=== PATIENT | male | born 1955 | race Caucasian/White ===

== ENCOUNTER → 2016-05-17 | Outpatient (CLI) | payer SELFPAY ==
--- NOTE | 2016-05-17 13:39 | DI ---
LEFT FOOT, 05/17/2016 11:41 AM: Clinical History: Left foot pain. Previous Exam: None at this facility. 3 views are submitted. There is no acute soft tissue, osseous, or joint abnormality. There is a promi nent os naviculare. Arthritic changes are present in the calcaneocuboidal joint. The patient is statu s post ORIF of fractures of the distal fibula and the medial malleolus. Reading: Except for degenerative changes in the calcaneocuboidal joint, the study is normal.
== END ==
LOC: MOB LAB 11:44
DX: M79.672 Pain in left foot (principal); M19.072 Primary osteoarthritis, left ankle and foot
CPT/HCPCS: 36415; 73630; 84550

== ENCOUNTER → 2016-05-30 | Outpatient (CLI) | payer OTHER ==
--- NOTE | 2016-05-30 11:02 | DI ---
CERVICAL SPINE SERIES, 05/30/2016 10:12 AM: Clinical History: Status post cervical fusion. Followup exam. Previous Exam: 02/02/2016. Upright AP and lateral and upright lateral flexion and extension views are submitted. The patient is status post anterior fusions at C5-6 and C6-7. There is still a lucency along the inferior aspect of the bone graft at C6-7. There is disc space narrowing at C3-4 and C4-5 with anterior and posterior bijan ny proliferative change, and similar narrowing at C7-T1. No instability is noted with flexion and ext ension maneuvers. Degenerative arthritic changes are present in the zygapophyseal joints bilaterally at C7-T1. C1 articulates normally with C2 and the occiput. Prevertebral soft tissue planes are normal . Both lung apices are normal. Readin. Status post anterior fusions at C5-6 and C6-7. There is still a lucency along the inferior margin of the bone graft cage at C6-7. There is disc space narrowing at C3-4, C4-5, and C7-T1. 2. No instability is noted with flexion and extension maneuvers.
== END ==
LOC: RAD 10:09
PROVIDERS: ATTEND Physician Assistant
DX: Z47.89 Encounter for other orthopedic aftercare (principal); Z98.1 Arthrodesis status
CPT/HCPCS: 72050

== ENCOUNTER → 2016-07-05 | Outpatient (CLI) | payer OTHER ==
--- NOTE | 2016-07-06 08:36 | DI ---
CT CERVICAL SPINE SCAN WITH INTRATHECAL CONTRAST, 07/05/2016 1:08 PM : Clinical History: Cervical spondylosis. Previous Exam: None at this facility. Scans are performed from C3 to the base of the skull with intrathecal contrast. Sagittal and coronal reformatted images are generated. Curved coronal reformatted images and axial reformatted images angl ed through the disc spaces are also performed. There is superior endplate invagination involving C3 and T3, and there are anterior fusions at C5-6 a nd C6-7. Disc space narrowing is present at the remaining cervical disc levels. The anterior fusions at C5-6 and C6-7 are solid. There is 1 mm posterior subluxation of C4 on C5. C1 articulates normally with C2 and the occiput. Prevertebral soft tissue planes are normal. C2-3 and C3-4 disc spaces are normal. C4-5 has a central bulging but not herniated disc and there is no canal or significant neural foraminal stenosis. C5-6 and C6-7 show no canal or neural foraminal st enosis. The C7-T1 through T3-4 disc spaces are normal. The right cerebellar tonsil descends to the le alfredito of the foramen magnum in the left cerebellar tonsil is above the foramen magnum. The cervical cor d is normal. READIN. Status post anterior fusions at C5-6 and C6-7 in both fusions are solid. There is no canal or stacey ral foraminal stenosis at either level. 2. There is a bulging but not herniated disc at C4-5 with posterior subluxation of C4 on C5 by 1 mm. There is no canal or neural foraminal stenosis. 3. The C2-3, C3-4, and C7-T1 through T3-4 disc spaces are normal.
--- NOTE | 2016-07-06 09:07 | DI ---
COMPLETE MYELOGRAM, 07/05/2016 1:27 PM: Clinical History: Cervical, thoracic, and lumbar spondylosis. Previous Exam: None at this facility. A "time out" session verified the patient's name and date of . Informed signed consent was then obtained for this procedure. The patient and his informed of benefits and risks, to include but not be limited to: allergies to medications (skin preparation agents, local anesthetic, and contrast agent), infection, and "spinal" headaches. The lower back was prepped with ChloraPrep with Tint. 1% l idocaine without epinephrine was used for intradermal and subcutaneous local anesthesia. With fluoros copy, a 22 gauge spinal needle introduced into the spinal canal from the left L3 paraspinal approach. with a single pass that revealed droplets of clear colorless CSF. 10 ml of Omipaque 300 was injected into the spinal canal with fluoroscopic monitoring. Spot films of the spine were obtained and the pa tient was transferred to the CT scan suite for the CT myelogram. Following the CT scan, the patient was observed in the department for approximately 1 hour. 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 Both parties were also instructed to have him push fluids for the remainder of the day and to have him sleep on an extra pillow with the head up if possible. Both parties advised to watch for signs of an infection (including but not limited to: redness, swelling, fever) or an unusually severe headache. Both parties instructed to either contact the x-ray departme nt directly or to report to the Emergency Room immediately if problems arose. CERVICAL MYELOGRAM: There are anterior fusions at C5-6 and C6-7. The C2-3 and C3-4 disc spaces are normal. There is an an terior extradural defect at C4-5 without nerve root sleeve amputation consistent with a bulging disc. There is no canal stenosis at this level but there is posterior subluxation of C4 on C5 by 1 mm. The re is no canal stenosis at C5-6 or C6-7. THORACIC MYELOGRAM: After completion of spot films of the lumbar spine, contrast was advanced to the cervical spine becau se there was considerable dilution of the contrast even on the lumbar spine spot films. After complet ion of the cervical spine study, there was insufficient concentration of contrast to facilitate adequ ate evaluation of the thoracic spine and cord. Evaluation is deferred to the CT thoracic myelogram. LUMBAR MYELOGRAM: There are 6 nonrib-bearing lumbar vertebral bodies. Severe disc space narrowing is present at L4-5. M inimal anterior extradural defects are seen at L1-2 through L3-4, and L3-4 has a bulging but not lola iated disc. There is insufficient contrast to further evaluate L1-2 and L2-3. L4-5 shows no nerve ajit t sleeve amputation but there is a prominent anterior extradural defect with mild narrowing of the ca nal consistent with a bulging but not herniated disc. L5-L6 has a mild anterior extradural defect ind icating a mild bulging but not herniated disc. The L6-S1 disc space is normal. Readin. Status post anterior fusions at C5-6 and C6-7 without evidence of canal stenosis or nerve root sl eeve amputations. There is a bulging disc at C4-5 with posterior subluxation of C4 on C5 by 1 mm. The C2-3 and C3-4 disc spaces are normal. 2. The thoracic spine could not be adequately evaluated and assessment is deferred to the CT thoraci c myelogram study. 3. L3-4 through L5-L6 have bulging discs without canal stenosis. The L6-S1 disc space is normal. The L1-2 and L2-3 disc spaces could not be adequately evaluated and interpretation is deferred to the CT lumbar myelogram study.
--- NOTE | 2016-07-06 09:10 | DI ---
CT THORACIC SPINE SCAN WITH INTRATHECAL CONTRAST, 07/05/2016 1:08 PM : Clinical History: Cervical spondylosis with fusion; old fracture of T12. Previous Exam: None at this facility. Scans are obtained from C6 to the mid body of L2 with intrathecal contrast. Sagittal and coronal refo rmatted images are generated.Curved coronal reformatted images and axial reformatted images angled th rough the disc spaces are also performed. 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 There is a vertical midline fracture through the body of T12. The disc spaces are normal. There are no acute fractures. Posterior alignment and posterior e lements are normal. Pedicles are normal. Paravertebral soft tissue planes are normal. The thoracic cord is normal and there is no intradural extramedullary lesion. The disc spaces from C7 -T1 through T9-10 are normal. T10-11 has a circumferentially bulging disc that is more prominent on t he left anterolateral aspect of the right side. There is no canal or neural foraminal stenosis. T11-1 2 also has a circumferentially bulging disc that is more prominent on the left anterolateral aspect w ithout canal or neural foraminal stenosis. The T12-L1 and L1-2 disc spaces are normal. READIN. There is an old fracture involving the body of T12. The vertical fracture lucency extends to the mid sagittal plane of the T12 vertebral body indicating nonunion. The thoracic cord is normal and the re is no intradural extramedullary lesion. 2. T10-11 and T11-12 have bulging disc that are most prominent on the left anterolateral aspect but there is no canal or neural foraminal stenosis. 3. The disc spaces from C7-T1 through T9-10 and at T12-L1 and L1-2 are normal.
--- NOTE | 2016-07-06 10:47 | DI ---
CT LUMBAR SPINE SCAN WITH INTRATHECAL CONTRAST, 07/05/2016 1:08 PM : Clinical History: Cervical spondylosis. Previous fracture of T12. Previous Exam: 02/13/2016. Scans are obtained from T11 to S4. without IV contrast. Sagittal and coronal reformatted images are g enerated. Curved coronal reformatted images and axial reformatted images angled through the disc spac es are also performed. This patient has 6 nonrib-bearing lumbar vertebral bodies and the lowest level is identified as L6. The lumbar vertebral bodies are of normal height and size. There is an old compression fracture of T1 2 and fracture lucencies are still visible to the vertebral body in the mid sagittal and coronal plan es. There is disc space narrowing from T11-12 through L5-S1 and at L6-S1. There are no acute fracture s. Posterior alignment and posterior elements are normal. Pedicles are normal. The sacrum and SI join ts are normal. The T10-11 through L2-3 disc spaces all show minimal bulging but not herniated discs without canal or neural foraminal stenosis. L3-4 has a more prominent circumferentially bulging but not herniated dis c without canal or neural foraminal stenosis. L4-5 also has a bulging disc but in addition, there is bony proliferative change posteriorly as well as hypertrophic changes of the apophyseal joints and li gamentum flavum. There is no canal stenosis or significant neural foraminal stenosis. The L5-L6 disc space has a bulging but not herniated disc without canal or neural foraminal stenosis. The L6-S1 disc space is normal. READIN. There are bulging but not herniated discs without canal or neural foraminal stenosis from T10-11 through L5-L6. There are old fractures involving the body of T12. 2. That L6-S1 disc space is normal.
== END ==
LOC: RAD 12:37
PROVIDERS: ATTEND Neurological Surgery
DX: M54.2 Cervicalgia (principal); M47.812 Spondylosis without myelopathy or radiculopathy, cervical region; M47.814 Spondylosis without myelopathy or radiculopathy, thoracic region; M47.816 Spondylosis without myelopathy or radiculopathy, lumbar region; Z98.1 Arthrodesis status; W22.8XXA Striking against or struck by other objects, initial encounter; Y93.89 Activity, other specified
CPT/HCPCS: 72126; 72129; 72132; 72240; 72255; 72265

== ENCOUNTER 2016-08-15 08:39 | Day surgery (SDC) | payer OTHER ==
[2016-08-15] MEDS ORDERED: DEXAMETHASONE SOD PHOSPHATE 4 MG/1 ML VIAL IM ONE (09:00)
[2016-08-15] MEDS ORDERED: Iopamidol Inj 61% 50 ML VIAL INTRATHEC ONE (09:00)
[2016-08-15] MEDS ORDERED: TRIAMCINOLONE ACETONIDE 40 MG/1 ML IAC ONE (09:00)
[2016-08-15] MEDS ORDERED: BUPivacaine Inj 0.25% PF - 10ml vial EPIDURAL ONE (09:00)
--- NOTE | 2016-08-15 09:18 | GEN.OPNOTE ---
Interlaminar DAVI Procedure: Interlaminar Epidural Steriod Injection Procedure Code - Neurosurgery: 31442 : Cervical Epidural Injection (Single) Level: T11-12 -: Consent: Rationale for procedure, nature of procedure, possible risks and benefits were discussed with the patient. Risks including allergic reaction to medications, known effects of steroid medications including transient elevation in blood sugar with aggravation of pre-existing diabetes and remote risk of aseptic necrosis of the hip. Pain at the injection site, inadvertent dural puncture with resultant in CSF leak and headache possibly requiring further treatment. Infection or bleeding with potential risk of neurologic injury with weakness, paralysis or were all reviewed with the patient who wished to proceed. Anesthesia, sedation: No intravenous access or sedation was used. Physiologic monitoring of pulse and oxygen saturation was utilized. Procedure: The patient was placed prone on the operating room table, prepped with Chloroprep and sterilely draped. The skin was anesthetized with 1% Buffered Xylocaine. Under fluoroscopic control a 22-gauge Touhy needle was advanced into the epidural space at the T11-12 level. Using loss-of- resistance technique the epidural space was identified. Omnipaque was injected under real-time fluoroscopy demonstrating an epidurogram. Following this 5 ml of a mixture of kenalog (40mg/ml) dexamethasone (10mg/ml) and 1% lidocaine was injected epidurally. AP and lateral images of the final needle placement were obtained. The needle was removed and the patient returned to the post procedure recovery room where they were monitored for any side effects. Pain assessment: Preprocedure pain []/10, post procedure pain []/10. Discharge instructions: Patient was given a pain log to be filled out and returned. A delayed response to the steroids of 2-5 days was discussed.
--- NOTE | 2016-08-15 09:20 | GEN.OPNOTE ---
Facet Injection Procedure: Facet Injection with Local Anesthetic and Steriod Procedure Code - Neurosurgery: 06484 : C/T Spine Facet/Med, 1st Level: C7T1 Preoperative Diagnosis: Cervical Spondylosis Postoperative Diagnosis: same -: Consent: Rationale for procedure, nature of procedure, possible risks and benefits were discussed with the patient. Risks including allergic reaction to medications, known effects of steroid medications including transient elevations in blood sugar with aggravation of pre-existing diabetes and remote risk of aseptic necrosis of the hip. Infection or bleeding with potential risk of neurologic injury with weakness, paralysis or were all reviewed with the patient who wished to proceed. Anesthesia, sedation: No intravenous access or sedation was used. Physiologic monitoring of pulse and oxygen saturation was utilized. Procedure: The patient was placed prone on the operating room table, prepped with Chloroprep and sterilely draped. The skin was anesthetized with 1% Buffered Xylocaine. Under fluoroscopic control a 22-gauge needle was advanced C7T1 facet joint on the right. Omnipaque was injected under real-time fluoroscopy demonstrating an facet arthrogram. Following this 1 ml of a mixture of kenalog (40mg/ml) and Ropivacaine was injected. AP and lateral images of the final needle placement was obtained. The needle was removed and the patient returned to the post procedure recovery room where they were monitored for any side effects. Pain assessment: Preprocedure pain []/10, post procedure pain []/10. Discharge instructions: Patient was given a pain log to be filled out and returned. A delayed response to the steroids of 2-5 days was discussed.
[2016-08-15 09:24] VITALS: RESP 16; TEMP 96.8
== END 2016-08-15 09:29 | disposition home or self-care (01) ==
LOC: SDSC 08:39
PROVIDERS: ATTEND Pain Medicine Interventional Pain Medicine
DX: M47.812 Spondylosis without myelopathy or radiculopathy, cervical region (principal)
CPT/HCPCS: 76000; J1100